=== PATIENT | female | born 1975 | race American Indian/Alaskan Native ===

== ENCOUNTER 2017-08-11 17:09 | Emergency (ER) | payer MEDICAID ==
[2017-08-11 17:19] VITALS: BP 120/57
[2017-08-11] MEDS ORDERED: ASPIRIN PO ONE (17:19)
--- NOTE | 2017-08-11 18:03 | Emergency Department Report ---
ED Chest Pain HPI - General Chief Complaint: Chest Pain Stated Complaint: CHEST PAIN Time Seen by Provider: 08/11/17 17:48 Source: patient Mode of arrival: Ambulatory Limitations: No Limitations - History of Present Illness Initial Comments: Ms. Gordon is a healthy 42-year-old female who presents with 2 weeks of intermittent chest pain. Chest pain is episodic. Not associated with exertion. Seems to be more prominent at night. Pain feels like a pinching sensation. The chest pain improved with massage. She has been under some stress. Denies leg pain. No recent travel. MD Complaint: chest pain -: Gradual, week(s) (2) Onset: during rest Pain Radiation: none Severity: moderate Severity scale (0 -10): 6 Quality: sharp Consistency: intermittent Improves With: other (massage) Worsens With: nothing Context: other (recently lost job 2 to 3 weeks ago) re: denies: nausea, vomting, diaphoresis, dyspnea, sense of impending doom Other Symptoms: denies: cough, fever, syncope, rash, leg swelling - Related Data Allergies Allergy/AdvReac Type Severity Reaction Status Date / Time No Known Allergies Allergy Unverified 08/11/17 17:16 Heart Score - HEART Score History: Slightly suspicious EKG: Normal Age: < 45 Risk factors: No known risk factors Troponin: < normal limit HEART Score: 0 ED Review of Systems ROS: Stated complaint: CHEST PAIN Other details as noted in HPI Comment: All other systems reviewed and negative Constitutional: denies: fever, malaise Respiratory: denies: cough Cardiovascular: as per HPI, chest pain, palpitations. denies: dyspnea on exertion, edema, syncope ED Past Medical Hx - Past Medical History Previous Medical History?: No - Surgical History Past Surgical History?: No - Family History Family history: no significant - Social History Smoking Status: Never Smoker Substance Use Type: Alcohol ED Physical Exam - General Limitations: No Limitations General appearance: alert, in no apparent distress - Head Head exam: Present: atraumatic, normocephalic - Eye Eye exam: Present: normal appearance - ENT ENT exam: Present: mucous membranes moist - Neck Neck exam: Present: normal inspection - Respiratory Respiratory exam: Present: normal lung sounds bilaterally. Absent: respiratory distress, wheezes, rales, rhonchi - Cardiovascular Cardiovascular Exam: Present: regular rate, normal rhythm, normal heart sounds. Absent: systolic murmur, diastolic murmur, rubs, gallop - GI/Abdominal GI/Abdominal exam: Present: soft, normal bowel sounds. Absent: distended, tenderness, guarding, rebound - Extremities Exam Extremities exam: Present: normal inspection - Back Exam Back exam: Present: normal inspection - Neurological Exam Neurological exam: Present: alert, oriented X3 - Psychiatric Psychiatric exam: Present: normal affect, normal mood - Skin Skin exam: Present: warm, dry, intact, normal color. Absent: rash ED Course Vital Signs 08/11/17 17:16 Temperature 99.4 F Pulse Rate 75 Respiratory 22 Rate Blood Pressure 120/57 O2 Sat by Pulse 100 Oximetry ED Medical Decision Making - Lab Data Result diagrams: 08/11/17 17:44 08/11/17 17:44 - EKG Data -: EKG Interpreted by Me EKG shows normal: sinus rhythm, axis, intervals, QRS complexes, ST-T waves Rate: normal - EKG Data 08/11/17 18:01 NSR nl rate nl axis nl intervals no ST-T signs of ischemia no ST elevation rate 65 beats a minute - Medical Decision Making Ms. Gordon presents with atypical chest pain at rest worse at night. I do not feel that her chest pain with presents ACS. No indication of PE. She has PERC negative. Possibly PVCs or chest wall strain. Given reassurance. She has recently obtained [employer] insurance. I recommended outpatient cardiac stress test. Referred to cardiology and outside clinic. Patient was concerned about possible potential diabetes. Random glucose of 91 do not suspect diabetes. However she does have irtn deficiency anemia. Critical care attestation.: If time is entered above; I have spent that time in minutes in the direct care of this critically ill patient, excluding procedure time. ED Disposition Clinical Impression: Chest pain, Anemia Disposition: -01 TO HOME OR SELFCARE Is pt being admited?: No Does the pt Need Aspirin: No Condition: Stable Instructions: Chest Pain (ED) Referrals: JANIA MCDONNELL MD [Staff Physician] - 3-5 Days [facility] [Outside] - 3-5 Days Time of Disposition: 18:04
[2017-08-11 18:13] LABS: BUN/Creatinine Ratio 13; Blood Urea Nitrogen 8 mg/dL (7-17); Calcium 8.9 mg/dL (8.4-10.2); Hemolysis Index 0
[2017-08-11 18:19] LABS: Basophils # (Auto) 0.1 K/mm3 (0.0-0.1); Eosinophils # (Auto) 0.1 K/mm3 (0.0-0.4); Eosinophils % (Auto) 1.2 % (0.0-4.3); Hematocrit 29.8 % (30.3-42.9); Hemoglobin 9.8 gm/dl (10.1-14.3); Lymphocytes # (Auto) 3.8 K/mm3 (1.2-5.4); Lymphocytes % (Auto) 45.3 % (13.4-35.0); Mean Corpuscular HGB Conc 33 % (30-34); Mean Corpuscular Hemoglobin 23 pg (28-32); Mean Corpuscular Volume 69 fl (79-97); Monocytes # (Auto) 0.9 K/mm3 (0.0-0.8); Monocytes % (Auto) 10.5 % (0.0-7.3); Platelet Count 305 K/mm3 (140-440); Red Cell Distribution Width 18.4 % (13.2-15.2)
== END 2017-08-11 18:32 | disposition home or self-care (01) ==
LOC: ED 17:09
DX: R07.9 Chest pain, unspecified (principal); D64.9 Anemia, unspecified
CPT/HCPCS: 36415; 80048; 84484; 85025; 93005; 93010

== ENCOUNTER 2019-12-04 14:41 | Emergency (ER) | payer SELFPAY ==
[2019-12-04] MEDS ORDERED: SODIUM CHLORIDE 0.9% 1000 ML 1,000 ML IV ONE (17:49)
[2019-12-04] MEDS ORDERED: ONDANSETRON 4 MG/2 ML INJ IV ONE (17:49)
[2019-12-04] MEDS ORDERED: KETOROLAC 30 MG/1 ML INJ IV ONE (17:49)
[2019-12-04] MEDS ORDERED: HYOSCYAMINE SUBL 0.125 MG TAB SL ONE (17:50)
[2019-12-04 18:49] LABS: Basophils # (Auto) 0.1 K/mm3 (0.0-0.1); Basophils % (Auto) 0.4 % (0.0-1.8); Eosinophils # (Auto) 0.1 K/mm3 (0.0-0.4); Eosinophils % (Auto) 0.5 % (0.0-4.3); Hematocrit 27.7 % (30.3-42.9); Hemoglobin 8.4 gm/dl (10.1-14.3); Lymphocytes # (Auto) 2.8 K/mm3 (1.2-5.4); Lymphocytes % (Auto) 16.3 % (13.4-35.0); Mean Corpuscular HGB Conc 31 % (30-34); Monocytes # (Auto) 1.5 K/mm3 (0.0-0.8); Monocytes % (Auto) 8.4 % (0.0-7.3); Platelet Count 443 K/mm3 (140-440); Red Blood Count 4.31 M/mm3 (3.65-5.03); Red Cell Distribution Width 19.7 % (13.2-15.2)
[2019-12-04 18:51] LABS: Mean Corpuscular Volume 64 fl (79-97)
[2019-12-04 18:52] LABS: Albumin 4.1 g/dL (3.9-5); Bilirubin,Direct 0.2 mg/dL (0-0.2)
--- NOTE | 2019-12-04 19:20 | Emergency Department Report ---
<CLAUDIAERA - Last Filed: 12/04/19 19:14> ED Abdominal Pain HPI - General Chief Complaint: Abdominal Pain Stated Complaint: ABDOMINAL PAIN Time Seen by Provider: 12/04/19 17:49 Source: patient Mode of arrival: Ambulatory Limitations: No Limitations - History of Present Illness Initial Comments: 44-year-old obese female sent emerge department complaining of a 2-month history of episodic abdominal pain associate with spasms and cramps which has progressively worsened over the last 3days to the point of a sharp throbbing cramping spastic pain. She reports no nausea, no vomiting, no diarrhea, no fever, chills, sweats no hemoptysis no hematemesis no hematochezia. She reports no hematuria or dysuria no increased urinary urgency or decreased decreased urinary production. No prior abdominal Severity: moderate, severe Severity scale (0 -10): 10 Improves With: nothing Worsens With: eating Associated Symptoms: denies: chills, anorexia - Related Data Previous Rx's Medication Instructions Recorded Last Taken Type Ciprofloxacin HCl [Ciprofloxacin 500 mg PO Q12HR #20 tab 12/05/19 Unknown Rx TAB] Dicyclomine [Bentyl] 20 mg PO Q6H PRN #30 tablet 12/05/19 Unknown Rx Ketorolac [Toradol] 10 mg PO Q6H PRN #20 tablet 12/05/19 Unknown Rx Ondansetron [Zofran Odt] 4 mg PO Q6HR PRN #20 tab.rapdis 12/05/19 Unknown Rx metroNIDAZOLE [Flagyl] 500 mg PO Q8HR #30 tablet 12/05/19 Unknown Rx Allergies Allergy/AdvReac Type Severity Reaction Status Date / Time No Known Allergies Allergy Unverified 08/11/17 17:16 ED Review of Systems Comment: All other systems reviewed and negative ED Past Medical Hx - Past Medical History Previous Medical History?: No - Surgical History Past Surgical History?: No - Social History Smoking Status: Never Smoker Substance Use Type: Alcohol - Medications Home Medications: Home Medications Medication Instructions Recorded Confirmed Last Taken Type Ciprofloxacin HCl [Ciprofloxacin 500 mg PO Q12HR #20 tab 12/05/19 Unknown Rx TAB] Dicyclomine [Bentyl] 20 mg PO Q6H PRN #30 tablet 12/05/19 Unknown Rx Ketorolac [Toradol] 10 mg PO Q6H PRN #20 tablet 12/05/19 Unknown Rx Ondansetron [Zofran Odt] 4 mg PO Q6HR PRN #20 tab.rapdis 12/05/19 Unknown Rx metroNIDAZOLE [Flagyl] 500 mg PO Q8HR #30 tablet 12/05/19 Unknown Rx ED Physical Exam - General Limitations: No Limitations General appearance: alert, in no apparent distress - Head Head exam: Present: atraumatic, normocephalic - Eye Eye exam: Present: normal appearance, PERRL, EOMI Pupils: Present: normal accommodation - ENT ENT exam: Present: normal exam, normal orophraynx, mucous membranes moist, TM's normal bilaterally - Neck Neck exam: Present: normal inspection, full ROM - Respiratory Respiratory exam: Present: normal lung sounds bilaterally. Absent: respiratory distress - Cardiovascular Cardiovascular Exam: Present: regular rate, normal rhythm. Absent: systolic mu rmur, diastolic murmur, rubs, gallop - GI/Abdominal GI/Abdominal exam: Present: soft, tenderness, normal bowel sounds, other (This is tenderness to the epigastric area and suprapubic region radiating to the left and right lower quadrant region. Abdomen is soft bowel sounds are positive). Absent: mass, bruit - Extremities Exam Extremities exam: Present: normal inspection - Back Exam Back exam: Present: normal inspection. Absent: CVA tenderness (R), CVA tenderness (L) - Neurological Exam Neurological exam: Present: alert, oriented X3, CN II-XII intact, normal gait - Psychiatric Psychiatric exam: Present: normal affect, normal mood - Skin Skin exam: Present: warm, dry, intact, normal color. Absent: rash ED Medical Decision Making - Lab Data Result diagrams: 12/04/19 18:19 - Medical Decision Making Currently pending his urinalysis and a CT scan for Ms. Linares. Will sign patient out to Zachery Michaud for today for definitive disposition ED Disposition Clinical Impression: Diverticulitis large intestine w/o perforation or abscess w/o bleeding Abdominal pain Qualifiers: Abdominal location: lower abdomen, unspecified Qualified Code(s): R10.30 - Lower abdominal pain, unspecified Disposition: TO HOME OR SELFCARE Condition: Stable Instructions: Abdominal Pain (ED), Diverticulitis (ED), Diverticulitis Diet (ED) Additional Instructions: The imaging report showed that you have infection in your colon called diverticulitis. Therefore take medication with food, drink plenty of fluids and follow-up with your primary care physician in 7 to 10 days for reevaluation. Return to the ED immediately if symptoms get worse. Prescriptions: Dicyclomine [Bentyl] 20 mg PO Q6H PRN #30 tablet PRN Reason: Abdominal pain Ciprofloxacin HCl [Ciprofloxacin TAB] 500 mg PO Q12HR #20 tab metroNIDAZOLE [Flagyl] 500 mg PO Q8HR #30 tablet Ketorolac [Toradol] 10 mg PO Q6H PRN #20 tablet PRN Reason: Pain Ondansetron [Zofran Odt] 4 mg PO Q6HR PRN #20 tab.rapdis PRN Reason: Nausea Referrals: ABHI COOL MD [Staff Physician] - 7-10 days Forms: Work/School Release Form(ED) Print Language: PORTUGUESE <ZACHERY MICHAUD - Last Filed: 12/05/19 00:33> ED Review of Systems ROS: Stated complaint: ABDOMINAL PAIN Other details as noted in HPI ED Course Vital Signs 12/04/19 12/04/19 14:56 18:24 Temperature 99.4 F Pulse Rate 109 H Respiratory 18 18 Rate Blood Pressure 130/74 O2 Sat by Pulse 100 Oximetry ED Medical Decision Making - Lab Data Result diagrams: 12/04/19 18:19 12/04/19 18:19 - Radiology Data Radiology results: report reviewed, image reviewed Findings [address] [address] Cat Scan Report Signed Patient: JOANNA LINARES MR#: [id number] : 1975 Acct:[id number] Age/Sex: 44 / F ADM Date: 12/04/19 Loc: ED Attending Dr: Ordering Physician: RUTHY ZAMORA Date of Service: 12/04/19 Procedure(s): CT abdomen pelvis w con Accession Number(s): [id number] cc: RUTHY ZAMORA CT ABDOMEN AND PELVIS WITH CONTRAST HISTORY: Abdominal pain, leukocytosis COMPARISON: None TECHNIQUE: Routine abdominal and pelvic CT exam performed following intravenous contrast administration. Patient received 100 mL IV Omnipaque 300. All CT scans at this location are pe rformed using CT dose reduction for ALARA by means of automated exposure control. FINDINGS: CT ABDOMEN: Lung Bases: No significant abnormality. Liver: No significant abnormality. Biliary: No significant abnormality. Spleen: No significant abnormality. Unenlarged. Pancreas: No significant abnormality. Adrenals: No significant abnormality. Kidneys: No significant abnormality. Lymphatics: No lymphadenopathy. Vasculature: No significant abnormality. Bowel/Peritoneum: There is diverticulitis in the junction of the descending and sigmoid colon, without abscess or perforation. Normal appendix. CT PELVIC: : No significant abnormality. Lymphatics: No lymphadenopathy. Osseous Structures: No aggressive appearing osseous lesions. Additional Findings: None IMPRESSION: 1. Diverticulitis at the junction of the descending and sigmoid colon, without abscess or perforation. Signer Name: Stu Xiong MD Signed: 12/05/2019 12:02 AM Workstation Name: [id number] Transcribed By: AMY Dictated By: Stu Xiong MD Electronically Authenticated By: Stu Xiong MD Signed Date/Time: 12/05/19 0002 DD/ 0001 TD/TT: - Medical Decision Making I assumed care of the patient from Romi Boone PA-C at shift change at 1900 hrs. Patient had presented to the ED with diffuse abdominal pain intermittently for the last 2 months, worse in the last 3 days with no nausea, vomiting, diarrhea, dysuria, urinary frequency and urgency, dizziness, fever and chills, chest pain, shortness of breath or vaginal bleeding. In the ED, patient was treated for pain and lab test results showed acute leukocytosis of 17,500, and the rest of the lab test results are nonactionable. At the time of shift change, the patient was awaiting abdomen pelvis CT scan with contrast test to be performed. The abdomen pelvis CT scan with contrast showed diverticulitis at the junction of the descending and sigmoid colon, without abscess or perforation. Patient was therefore treated for pain, also started on Levaquin 500 mg p.o. x1, and Flagyl 500 mg IV x1. On reevaluation, patient's pain is well controlled medications. Patient was discharged home on pain medications and antibiotics as well as antiemetics and was advised to follow-up with her primary care physician in 7 to 10 days for reevaluation or return to the ED immediately if symptoms get worse. - Differential Diagnosis Acute Critical care attestation.: If time is entered above; I have spent that time in minutes in the direct care of this critically ill patient, excluding procedure time. ED Disposition Is pt being admited?: No Does the pt Need Aspirin: No Time of Disposition: 00:32
[2019-12-04 20:03] LABS: HCG Qualitative,Urine Negative (Negative)
[2019-12-04 20:06] LABS: Bilirubin,Urine NEG (Negative); Blood,Urine NEG (Negative); Color,Urine Yellow (Yellow); Mucus,Urine 3+ /HPF; Protein,Urine <15 mg/dL mg/dL (Negative)
[2019-12-04 23:07] LABS: Alanine Aminotransferase 12 units/L (7-56); Albumin 4.3 g/dL (3.9-5); Blood Urea Nitrogen 6 mg/dL (7-17); Calcium 9.1 mg/dL (8.4-10.2); Hemolysis Index 4
[2019-12-04 23:19] LABS: BUN/Creatinine Ratio 9
--- NOTE | 2019-12-05 00:06 | Cat Scan Report ---
CT ABDOMEN AND PELVIS WITH CONTRAST HISTORY: Abdominal pain, leukocytosis COMPARISON: None TECHNIQUE: Routine abdominal and pelvic CT exam performed following intravenous contrast administrat ion. Patient received 100 mL IV Omnipaque 300. All CT scans at this location are performed using CT d ose reduction for ALARA by means of automated exposure control. FINDINGS: CT ABDOMEN: Lung Bases: No significant abnormality. Liver: No significant abnormality. Biliary: No significant abnormality. Spleen: No significant abnormality. Unenlarged. Pancreas: No significant abnormality. Adrenals: No significant abnormality. Kidneys: No significant abnormality. Lymphatics: No lymphadenopathy. Vasculature: No significant abnormality. Bowel/Peritoneum: There is diverticulitis in the junction of the descending and sigmoid colon, withou t abscess or perforation. Normal appendix. CT PELVIC: : No significant abnormality. Lymphatics: No lymphadenopathy. Osseous Structures: No aggressive appearing osseous lesions. Additional Findings: None IMPRESSION: 1. Diverticulitis at the junction of the descending and sigmoid colon, without abscess or perforation . Signer Name: Stu Xiong MD Signed: 12/05/2019 12:02 AM Workstation Name: [id number]
[2019-12-05] MEDS ORDERED: levoFLOXacin 500 MG TAB PO ONE (00:08)
[2019-12-05] MEDS ORDERED: metroNIDAZOLE/NS 500 MG/100 ML 500 MG/100 ML BAG IV ONE (00:10)
[2019-12-05] MEDS ORDERED: MORPHINE 4 MG/1 ML INJ IV ONE (00:17)
[2019-12-05] MEDS ORDERED: ONDANSETRON 4 MG/2 ML INJ IV ONE (00:17)
[2019-12-05 01:22] VITALS: BP 113/62
== END 2019-12-05 01:00 | disposition home or self-care (01) ==
LOC: ED 14:41
DX: K57.32 Diverticulitis of large intestine without perforation or abscess without bleeding (principal); Z79.899 Other long term (current) drug therapy
CPT/HCPCS: 36415; 74177; 80053; 80076; 81001; 81025; 83690; 85025; 96361; 96365; 96375; 96376; 99284; J1885; J2270; J2405; J7030; Q9967

== ENCOUNTER 2020-04-17 12:35 | Emergency (ER) | payer SELFPAY ==
[2020-04-17] MEDS ORDERED: METOCLOPRAMIDE 10 MG/2 ML INJ IV ONE (13:12)
[2020-04-17] MEDS ORDERED: dexAMETHasone 4 MG/ML VIAL IV ONE (13:12)
[2020-04-17] MEDS ORDERED: KETOROLAC 30 MG/1 ML INJ IV ONE (13:12)
--- NOTE | 2020-04-17 13:13 | Emergency Department Report ---
ED Headache HPI - General Chief Complaint: Headache Stated Complaint: HEADACHE Source: patient - History of Present Illness Initial Comments: 45 y/o female comes in for intermittent headache for 1 week. Took Ibuprofen 800mg 2 days ago. Reports that it is global and had left eye twitching. Last eye check was 1 year ago for reading but has not been wearing. She denies any head trauma. No PMH NO meds and NKDA. Quality: moderate, throbbing Head Injury Location: global Recent Head Trauma: no recent headache/trauma Associated Symptoms: nausea/vomiting (no vomiting). denies: fatigue, facial pain, fever/chills, nasal congestion, nasal drainage, stiff neck, vision changes Allergies/Adverse Reactions: Allergies No Known Allergies Allergy (Unverified 08/11/17 17:16) Home Medications: Ambulatory Orders Ciprofloxacin HCl [Ciprofloxacin TAB] 500 mg PO Q12HR #20 tab 12/05/19 Dicyclomine [Bentyl] 20 mg PO Q6H PRN #30 tablet 12/05/19 Ketorolac [Toradol] 10 mg PO Q6H PRN #20 tablet 12/05/19 Ondansetron [Zofran Odt] 4 mg PO Q6HR PRN #20 tab.rapdis 12/05/19 metroNIDAZOLE [Flagyl] 500 mg PO Q8HR #30 tablet 12/05/19 ED Review of Systems ROS: Stated complaint: HEADACHE Other details as noted in HPI Comment: All other systems reviewed and negative ED Past Medical Hx - Past Medical History Previous Medical History?: No - Surgical History Past Surgical History?: No - Social History Smoking Status: Never Smoker Substance Use Type: Alcohol - Medications Home Medications: Home Medications Medication Instructions Recorded Confirmed Last Taken Type Ciprofloxacin HCl [Ciprofloxacin 500 mg PO Q12HR #20 tab 12/05/19 Unknown Rx TAB] Dicyclomine [Bentyl] 20 mg PO Q6H PRN #30 tablet 12/05/19 Unknown Rx Ketorolac [Toradol] 10 mg PO Q6H PRN #20 tablet 12/05/19 Unknown Rx Ondansetron [Zofran Odt] 4 mg PO Q6HR PRN #20 tab.rapdis 12/05/19 Unknown Rx metroNIDAZOLE [Flagyl] 500 mg PO Q8HR #30 tablet 12/05/19 Unknown Rx ED Physical Exam - General Limitations: No Limitations General appearance: alert, in no apparent distress - Head Head exam: Present: atraumatic, normocephalic - Eye Eye exam: Present: normal appearance - ENT ENT exam: Present: normal exam, mucous membranes moist - Neck Neck exam: Present: normal inspection, full ROM - Respiratory Respiratory exam: Present: normal lung sounds bilaterally - Cardiovascular Cardiovascular Exam: Present: regular rate, normal rhythm. Absent: systolic murmur, diastolic murmur, rubs, gallop - Expanded Neurological Exam Expanded Cranial nerves: EOM's Intact: Normal, Gag Reflex: Normal, Tongue Deviation: Normal, Nystagmus: Normal, Facial Sensation: Normal, Facial Palsy with Forehead Movement: Normal, Facial Palsy without Forehead Movement: Normal Cerebellar function: Finger to Nose: Normal, Heel to [place]: Normal, Romberg: Normal Upper motor neuron: Giorgi Neglect: Normal, Pronator Drift: Normal, Babinski Sign: Normal, Sensory Extinction: Normal Sensory exam: Upper Extremity Light Touch: Normal, Upper Extremity Pin Prick: Normal, Upper Extremity Temperature: Normal, UE 2 Point Discrimination: Normal, Lower Extremity Light Touch: Normal, Lower Extremity Pin Prick: Normal, Lower Extremity Temperature: Normal, LE 2 Point Discrimination: Normal Motor strength exam: RUE: 5, LUE: 5, RLE: 5, LLE: 5 Best Eye Response ([place]): (4) open spontaneously Best Motor Response (Jr): (6) obeys commands Best Verbal Response ([place]): (5) oriented Jr Total: 15 - Psychiatric Psychiatric exam: Present: normal affect, normal mood - Skin Skin exam: Present: warm, dry, intact, normal color. Absent: rash ED Course Vital Signs 04/17/20 12:42 Temperature 98.1 F Pulse Rate 74 Respiratory 18 Rate Blood Pressure 119/68 O2 Sat by Pulse 60 L Oximetry ED Medical Decision Making - Medical Decision Making 45 y/o female comes in for intermittent headache for 1 week. Took Ibuprofen 800mg 2 days ago. Reports that it is global and had left eye twitching. Last eye check was 1 year ago for reading but has not been wearing. She denies any head trauma. No PMH NO meds and NKDA. Critical care attestation.: If time is entered above; I have spent that time in minutes in the direct care of this critically ill patient, excluding procedure time. ED Disposition Clinical Impression: Headache Qualifiers: Headache type: unspecified Headache chronicity pattern: acute headache Intractability: intractable Qualified Code(s): R51.9 - Headache, unspecified Disposition: DC-01 TO HOME OR SELFCARE Is pt being admited?: No Does the pt Need Aspirin: No Condition: Stable Instructions: General Headache Without Cause, [id number] Additional Instructions: Try to take Tylenol and or Naproxen. Follow up with a Primary Healthcare Provider. Referrals: ABHI COOL MD [Staff Physician] - 3-5 Days [facility] [Provider Group] - 3-5 Days Forms: Work/School Release Form(ED)
[2020-04-17 14:11] VITALS: BP 119/57
== END 2020-04-17 14:17 | disposition home or self-care (01) ==
LOC: ED 12:35
DX: R51.9 Headache, unspecified (principal); Z79.899 Other long term (current) drug therapy
CPT/HCPCS: 96374; 96375; 99282; J1100; J1885; J2765

== ENCOUNTER 2020-08-05 18:22 | Emergency (ER) | payer SELFPAY ==
[2020-08-05 20:31] VITALS: BP 115/79
[2020-08-05 20:38] LABS: Hematocrit 35.4 % (30.3-42.9); Hemoglobin 11.7 gm/dl (10.1-14.3); Mean Corpuscular HGB Conc 33 % (30-34); Mean Corpuscular Volume 80 fl (79-97); Platelet Count 244 K/mm3 (140-440); Red Blood Count 4.43 M/mm3 (3.65-5.03)
[2020-08-05 20:39] LABS: Bilirubin,Urine NEG (Negative); Blood,Urine NEG (Negative); Color,Urine Yellow (Yellow); Mucus,Urine FEW /HPF; Protein,Urine <15 mg/dL mg/dL (Negative); Urobilinogen,Urine < 2.0 mg/dL (<2.0)
[2020-08-05 20:45] LABS: Red Cell Distribution Width 26.8 % (13.2-15.2)
[2020-08-05 20:54] LABS: Alanine Aminotransferase 12 units/L (7-56); Albumin 3.9 g/dL (3.9-5); BUN/Creatinine Ratio 11; Blood Urea Nitrogen 8 mg/dL (7-17); Calcium 8.4 mg/dL (8.4-10.2); Hemolysis Index 7
[2020-08-05] MEDS ORDERED: SODIUM CHLORIDE 0.9% 1000 ML 1,000 ML IV ONE (21:39)
[2020-08-05] MEDS ORDERED: MORPHINE 4 MG/1 ML INJ IV ONE (21:39)
[2020-08-05] MEDS ORDERED: ONDANSETRON 4 MG/2 ML INJ IV ONE (21:40)
--- NOTE | 2020-08-05 21:40 | Emergency Department Report ---
ED Abdominal Pain HPI - General Chief Complaint: Abdominal Pain Stated Complaint: ABDOMINAL/HEADACHE Time Seen by Provider: 08/05/20 20:46 Source: patient Mode of arrival: Ambulatory Limitations: No Limitations - History of Present Illness Initial Comments: 45-year-old female presents to the ER today with complaints of abdominal pain. Patient states that she has been having left-sided abdominal pain for about a week. She states is been constant. She also reports associated constipation, abdominal bloating, headache and urinary frequency. She states that she did have some prune juice this past Sunday after which she did have a good bowel movement but has not produced any since. She denies any blood or mucus in her stool. She denies any nausea or vomiting. She reports urinary frequency but no other UTI symptoms. Her last menstrual cycle was last week. She denies any abnormal vaginal symptoms. She reports a history of diverticulitis back in December 2019 and was concerned that her symptoms could be related to the same thing. She was not admitted or had to have any surgery and states she got better after being discharged home with antibiotics. She denies any abdominal surgeries in the past. She states she has never had a colonoscopy. MD Complaint: abdominal pain -: week(s) (1) - Related Data Previous Rx's Medication Instructions Recorded Last Taken Type Amoxicillin/K Clav Tab [Augmentin 1 tab PO Q8HR #30 tab 08/06/20 Unknown Rx 875 mg] Docusate Sodium [Colace] 100 mg PO BID #60 capsule 08/06/20 Unknown Rx Ondansetron [Zofran ODT TAB] 4 mg PO Q6HR PRN #20 tab.rapdis 08/06/20 Unknown Rx Allergies Allergy/AdvReac Type Severity Reaction Status Date / Time No Known Allergies Allergy Unverified 08/11/17 17:16 ED Review of Systems ROS: Stated complaint: ABDOMINAL/HEADACHE Other details as noted in HPI Comment: All other systems reviewed and negative Constitutional: chills. denies: fever Eyes: denies: eye pain, eye discharge, vision change ENT: denies: ear pain, throat pain, dental pain, hearing loss Respiratory: denies: cough, shortness of breath, SOB with exertion, SOB at rest, wheezing Cardiovascular: denies: chest pain, palpitations, dyspnea on exertion, edema, syncope, paroxysmal nocturnal dyspnea Gastrointestinal: abdominal pain, constipation. denies: nausea, vomiting, diarrhea, hematemesis, melena, hematochezia Genitourinary: frequency. denies: urgency, dysuria, hematuria, discharge, abnormal menses, dyspareunia Musculoskeletal: denies: back pain, joint swelling, arthralgia Skin: denies: rash, lesions, change in color, change in hair/nails, pruritus Neurological: denies: headache, weakness, numbness, paresthesias, confusion, abnormal gait, vertigo Psychiatric: denies: anxiety, depression, auditory hallucinations, visual hallucinations, homicidal thoughts, suicidal thoughts Hematological/Lymphatic: denies: easy bleeding, easy bruising ED Past Medical Hx - Past Medical History Previous Medical History?: No - Surgical History Past Surgical History?: No - Social History Smoking Status: Never Smoker Substance Use Type: None - Medications Home Medications: Home Medications Medication Instructions Recorded Confirmed Last Taken Type Amoxicillin/K Clav Tab [Augmentin 1 tab PO Q8HR #30 tab 08/06/20 Unknown Rx 875 mg] Docusate Sodium [Colace] 100 mg PO BID #60 capsule 08/06/20 Unknown Rx Ondansetron [Zofran ODT TAB] 4 mg PO Q6HR PRN #20 tab.rapdis 08/06/20 Unknown Rx ED Physical Exam - General Limitations: No Limitations General appearance: alert, in no apparent distress - Head Head exam: Present: atraumatic, normocephalic, normal inspection - Eye Eye exam: Present: normal appearance, PERRL, EOMI Pupils: Present: normal accommodation - ENT ENT exam: Present: normal exam, mucous membranes moist - Neck Neck exam: Present: normal inspection, full ROM - Respiratory Respiratory exam: Present: normal lung sounds bilaterally. Absent: respiratory distress, rales, rhonchi - Cardiovascular Cardiovascular Exam: Present: regular rate, normal rhythm, normal heart sounds - GI/Abdominal GI/Abdominal exam: Present: soft, tenderness (Mild ttp LLQ and LLQ without guarding; Mod ttp Suprapubic area with mild guard but no rebound. No rigidity noted. ). Absent: distended - Neurological Exam Neurological exam: Present: alert, oriented X3, CN II-XII intact, normal gait - Psychiatric Psychiatric exam: Present: normal affect, normal mood - Skin Skin exam: Present: intact ED Course Vital Signs 08/05/20 20:01 Temperature 99.0 F Pulse Rate 67 Respiratory 18 Rate Blood Pressure 115/79 O2 Sat by Pulse 100 Oximetry ED Medical Decision Making - Lab Data Result diagrams: 08/05/20 20:21 08/05/20 20:21 - Radiology Data Radiology results: report reviewed Patient: JOANNA LINARES MR#: [id number] : 1975 Acct:[id number] Age/Sex: 45 / F ADM Date: 08/05/20 Loc: ED Attending Dr: Ordering Physician: ANGELIQUE PALAFOX Date of Service: 08/05/20 Procedure(s): CT abdomen pelvis w con Accession Number(s): [id number] cc: ANGELIQUE PALAFOX CT ABDOMEN AND PELVIS WITH CONTRAST INDICATION / CLINICAL INFORMATION: Left sided abd pain / Constipation / Hx of Diverticulitis. TECHNIQUE: Axial CT images were obtained through the abdomen and pelvis after 100 cc Omnipaque 300 milligrams percent IV contrast. All CT scans at this location are performed using CT dose reduction for ALARA by means of automated exposure control. COMPARISON: None available. FINDINGS: LOWER CHEST: No significant abnormality. LIVER: No significant abnormality. GALLBLADDER: No significant abnormality. BILE DUCTS: No significant abnormality. PANCREAS: No significant abnormality. SPLEEN: No significant abnormality. ADRENALS: No significant abnormality. RIGHT KIDNEY and URETER: No significant abnormality. LEFT KIDNEY and URETER: No significant abnormality. STOMACH and SMALL BOWEL: No significant abnormality. COLON: Diverticulosis sigmoid colon without evidence of diverticulitis APPENDIX: No significant abnormality. PERITONEUM: No free fluid. No free air. No fluid collection. LYMPH NODES: No significant adenopathy. AORTA and ARTERIES: No significant abnormality. IVC and VEINS: No significant abnormality. URINARY BLADDER: No significant abnormality. REPRODUCTIVE ORGANS: No significant abnormality. ADDITIONAL FINDINGS: None. SKELETAL SYSTEM: No significant abnormality. IMPRESSION: 1. Diverticulosis of the sigmoid colon Signer Name: Mata Orozco MD Signed: 08/06/2020 12:35 AM Workstation Name: [id number] Transcribed By: PARMINDER Dictated By: Mata Orozco MD Electronically Authenticated By: Mata Orozco MD Signed Date/Time: 08/06/20 0035 - Medical Decision Making Labs reviewed -- CBC and CMP unremarkable. UA unremarkable. CT abd/pelvis with IV contrast shows sigmoid diverticulosis without diverticulitis and no other acute abnormality. Patient currently resting comfortably. She reports improvement of her pain after meds. She is not toxic or ill-appearing. Repeat abdominal exam shows mild tenderness in the left lower and suprapubic area but no rebound or guarding or rigidity or distention. Discussed case with Dr. Stevens, and he agrees that given patient history of diverticulitis, and location of her pain, recommend starting patient on Augmentin 3 times a day despite negative evidence CT for diverticulitis. Discussed lab and CT results with patient. Informed patient that we will still start on Augmentin to take 3 times a day, and and she will also be prescribed Colace to help soften her stools and have daily regular bowel movements. Also recommend she increase her water and fiber intake and she takes a probiotic. Discussed with patient importance of follow-up with GI for outpatient colonoscopy. Discussed with patient that if her abdominal pain worsens and she develops fever to return immediately to the ER. Patient expresses understanding of instructions and agree with plan. Patient stable at time of discharge. Critical care attestation.: If time is entered above; I have spent that time in minutes in the direct care of this critically ill patient, excluding procedure time. ED Disposition Clinical Impression: Left sided abdominal pain, Diverticulosis Disposition: DC-01 TO HOME OR SELFCARE Is pt being admited?: No Does the pt Need Aspirin: No Condition: Stable Instructions: Abdominal Pain, Adult, [id number], Diverticulosis, Abdominal Pain (ED) Additional Instructions: Take the Augmentin as prescribed. Take the Motrin as prescribed to help with pain, and take the Zofran as needed for nausea or vomiting. Take the Colace as prescribed to help soften your stool. Also recommend taking a probiotic daily. Also recommend that you increase your water and fiber intake to help with you having regular daily bowel movements. Follow-up closely with your primary care doctor. Return to the ER immediately if your pain worsens in any way and you start having associated fever with a temperature of 100.5 or higher. 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
[2020-08-05 22:08] LABS: Anisocytosis 2+; Total Cells Counted 100
[2020-08-05 22:09] LABS: Dimorphic RBC Yes; Macrocytosis Rare; Schistocytes Few
--- NOTE | 2020-08-06 00:40 | Cat Scan Report ---
CT ABDOMEN AND PELVIS WITH CONTRAST INDICATION / CLINICAL INFORMATION: Left sided abd pain / Constipation / Hx of Diverticulitis. TECHNIQUE: Axial CT images were obtained through the abdomen and pelvis after 100 cc Omnipaque 300 milligrams pe rcent IV contrast. All CT scans at this location are performed using CT dose reduction for ALARA by means of automated exposure control. COMPARISON: None available. FINDINGS: LOWER CHEST: No significant abnormality. LIVER: No significant abnormality. GALLBLADDER: No significant abnormality. BILE DUCTS: No significant abnormality. PANCREAS: No significant abnormality. SPLEEN: No significant abnormality. ADRENALS: No significant abnormality. RIGHT KIDNEY and URETER: No significant abnormality. LEFT KIDNEY and URETER: No significant abnormality. STOMACH and SMALL BOWEL: No significant abnormality. COLON: Diverticulosis sigmoid colon without evidence of diverticulitis APPENDIX: No significant abnormality. PERITONEUM: No free fluid. No free air. No fluid collection. LYMPH NODES: No significant adenopathy. AORTA and ARTERIES: No significant abnormality. IVC and VEINS: No significant abnormality. URINARY BLADDER: No significant abnormality. REPRODUCTIVE ORGANS: No significant abnormality. ADDITIONAL FINDINGS: None. SKELETAL SYSTEM: No significant abnormality. IMPRESSION: 1. Diverticulosis of the sigmoid colon Signer Name: Mata Orozco MD Signed: 08/06/2020 12:35 AM Workstation Name: [id number]
[2020-08-06] MEDS ORDERED: KETOROLAC 30 MG/1 ML INJ IV ONE (01:02)
[2020-08-06] MEDS ORDERED: AMOXICILLIN/K CLAV 875/125MG TAB PO ONE (01:02)
== END 2020-08-06 01:15 | disposition home or self-care (01) ==
LOC: ED 18:22
DX: K57.90 Diverticulosis of intestine, part unspecified, without perforation or abscess without bleeding (principal); R51.9 Headache, unspecified; R35.0 Frequency of micturition
CPT/HCPCS: 36415; 74177; 80053; 81001; 84703; 85007; 85025; 96361; 96374; 96375; 99284; J1885; J2270; J2405; J7030; Q9967

== ENCOUNTER 2020-08-24 16:20 | Emergency (ER) | payer SELFPAY ==
[2020-08-24 17:39] LABS: Bilirubin,Urine NEG (Negative); Blood,Urine NEG (Negative); Color,Urine Yellow (Yellow); Hyaline Casts,Urine 1 /LPF; Mucus,Urine 1+ /HPF; Protein,Urine <15 mg/dL mg/dL (Negative); Urobilinogen,Urine < 2.0 mg/dL (<2.0)
[2020-08-24 20:16] LABS: Hematocrit 35.8 % (30.3-42.9); Hemoglobin 11.9 gm/dl (10.1-14.3); Mean Corpuscular HGB Conc 33 % (30-34); Mean Corpuscular Volume 83 fl (79-97); Platelet Count 265 K/mm3 (140-440); Red Blood Count 4.34 M/mm3 (3.65-5.03)
[2020-08-24 20:17] LABS: Red Cell Distribution Width 21.4 % (13.2-15.2)
--- NOTE | 2020-08-24 20:17 | Ultrasound Report ---
. ULTRASOUND ABDOMEN, LIMITED (RIGHT UPPER QUADRANT) INDICATION: RUQ pain. COMPARISON: CT 08/05/2020 FINDINGS: Pancreas: Visualized portion shows no significant abnormality. Liver: Normal. Gallbladder: Normal. Bile ducts: Normal. Common Bile Duct measures 3-4 mm. Free fluid: None. Additional Findings: None. IMPRESSION: 1. No sonographic abnormality of the right upper quadrant. Signer Name: Vicente Garcia MD Signed: 08/24/2020 8:13 PM Workstation Name: [id number]
[2020-08-24 20:50] LABS: Alanine Aminotransferase 11 units/L (7-56); Albumin 3.9 g/dL (3.9-5); Blood Urea Nitrogen 8 mg/dL (7-17); Calcium 8.9 mg/dL (8.4-10.2); Hemolysis Index 11
[2020-08-24 20:58] LABS: BUN/Creatinine Ratio 13
[2020-08-24 21:21] LABS: Total Cells Counted 100
[2020-08-24 21:22] LABS: Anisocytosis 2+; Dimorphic RBC Yes; Macrocytosis Rare; Schistocytes Few
--- NOTE | 2020-08-24 22:35 | Emergency Department Report ---
<CLAUDIAERA - Last Filed: 08/24/20 22:31> ED Abdominal Pain HPI - General Chief Complaint: Abdominal Pain Stated Complaint: ABD PAIN, HEADACHE Source: patient Mode of arrival: Ambulatory Limitations: No Limitations - History of Present Illness Initial Comments: 45-year-old -Gabonese female returns emerged from complaining of a 2-week history epigastric and right upper quadrant pain and a crampy nature which worsens with certain meals and with palpation. Also has been having a dull throbbing headache off and on of an unknown etiology. MD Complaint: abdominal pain -: Gradual Location: epigastric Quality: aching, dull Consistency: intermittent Associated Symptoms: nausea. denies: dysuria, hematemesis, hematuria, anorexia, syncope - Related Data Previous Rx's Medication Instructions Recorded Last Taken Type Amoxicillin/K Clav Tab [Augmentin 1 tab PO Q8HR #30 tab 08/06/20 Unknown Rx 875 mg] Docusate Sodium [Colace] 100 mg PO BID #60 capsule 08/06/20 Unknown Rx Ibuprofen [Motrin] 800 mg PO Q8HR PRN #30 tablet 08/06/20 Unknown Rx Ondansetron [Zofran ODT TAB] 4 mg PO Q6HR PRN #20 tab.rapdis 08/06/20 Unknown Rx Butalbit/Acetamin/Caff/Codeine 1 cap PO Q8HR PRN #14 cap 08/24/20 Unknown Rx [Fioricet/Codeine 97-312-28-30] Hyoscyamine Subl [Levsin Sl 0.125 0.125 mg SL Q6HR PRN #20 tab 08/24/20 Unknown Rx TAB] Ondansetron [Zofran ODT TAB] 8 mg PO Q12HR #14 tab.rapdis 08/24/20 Unknown Rx Allergies Allergy/AdvReac Type Severity Reaction Status Date / Time No Known Allergies Allergy Unverified 08/11/17 17:16 ED Review of Systems Comment: All other systems reviewed and negative ED Past Medical Hx - Past Medical History Previous Medical History?: No - Surgical History Past Surgical History?: No - Social History Smoking Status: Never Smoker Substance Use Type: None - Medications Home Medications: Home Medications Medication Instructions Recorded Confirmed Last Taken Type Amoxicillin/K Clav Tab [Augmentin 1 tab PO Q8HR #30 tab 08/06/20 Unknown Rx 875 mg] Docusate Sodium [Colace] 100 mg PO BID #60 capsule 08/06/20 Unknown Rx Ibuprofen [Motrin] 800 mg PO Q8HR PRN #30 tablet 08/06/20 Unknown Rx Ondansetron [Zofran ODT TAB] 4 mg PO Q6HR PRN #20 tab.rapdis 08/06/20 Unknown Rx Butalbit/Acetamin/Caff/Codeine 1 cap PO Q8HR PRN #14 cap 08/24/20 Unknown Rx [Fioricet/Codeine 09-737-83-30] Hyoscyamine Subl [Levsin Sl 0.125 0.125 mg SL Q6HR PRN #20 tab 08/24/20 Unknown Rx TAB] Ondansetron [Zofran ODT TAB] 8 mg PO Q12HR #14 tab.rapdis 08/24/20 Unknown Rx ED Physical Exam - General Limitations: No Limitations General appearance: alert, in no apparent distress - Head Head exam: Present: atraumatic, normocephalic - Eye Eye exam: Present: normal appearance - ENT ENT exam: Present: mucous membranes moist - Neck Neck exam: Present: normal inspection - Respiratory Respiratory exam: Present: normal lung sounds bilaterally. Absent: respiratory distress - Cardiovascular Cardiovascular Exam: Present: regular rate, normal rhythm. Absent: systolic murmur, diastolic murmur, rubs, gallop - GI/Abdominal GI/Abdominal exam: Present: soft, tenderness (Tenderness to the right upper quadrant with positive Guerrier sign is noted.. No Rovsing, no Alvarez Gordon, no Nirav sign. No CVA tenderness is noted.), normal bowel sounds - Extremities Exam Extremities exam: Present: normal inspection - Back Exam Back exam: Present: normal inspection - Neurological Exam Neurological exam: Present: alert, oriented X3 - Psychiatric Psychiatric exam: Present: normal affect, normal mood - Skin Skin exam: Present: warm, dry, intact, normal color. Absent: rash ED Medical Decision Making - Lab Data Result diagrams: 08/24/20 19:36 08/24/20 19:36 - Radiology Data Radiology results: report reviewed Ultrasound normal - Medical Decision Making This patient presents with abdominal pain of unclear etiology. Their evaluation has not identified a emergent etiology for the abdominal pain. Specifically, given the very benign exam, normal laboratory studies, and lack of significant risk factors, I have a very low suspicion for appendicitis, ischemic bowel, bowel perforation, or any other life threatening disease. I have discussed with the patient the level of uncertainty with undifferentiated abdominal pain and clearly explained the need to follow-up as noted on the discharge instructions, or return to the Emergency Department immediately if the pain worsens, develops fever, persistent and uncontrollable vomiting, or for any new symptoms or concerns. I discussed with the patient that this presentation today for abdominal pain could represent a significant risk for an acute abdominal process. Although the tests in the ED were essentially normal, there is still a possibility of a process such as appendicitis, diverticulitis, cholecystitis, ulcer, early bowel obstruction, mesenteric ischemia, kidney stone, or even kidney infection which could subsequently cause disability or . The patient understands that they must return within 24 hours for a recheck or see their ph ysician within 24 hours for re-exam due to the possibility of significant surgical or medical process. ED Disposition Clinical Impression: Abdominal pain, Nausea, Cephalgia Disposition: TO HOME OR SELFCARE Is pt being admited?: No Does the pt Need Aspirin: No Condition: Stable Instructions: Migraine Headache, [id number], General Headache Without Cause, Tension Headache, Adult, [id number], Abdominal Pain, Adult, [id number], Abdominal Pain (ED) Additional Instructions: No evidence of of any gallbladder stones were noted. It is recommended based on your symptoms that you received a HIDA scan so please follow-up with gastroenterology for definitive management. Medication has been provided to you to help alleviate some of the symptoms you have been experiencing. Prescriptions: Butalbit/Acetamin/Caff/Codeine [Fioricet/Codeine [id number]] 1 cap PO Q8HR PRN #14 cap PRN Reason: headache Hyoscyamine Subl [Levsin Sl 0.125 TAB] 0.125 mg SL Q6HR PRN #20 tab PRN Reason: abdominal cramps and spasms Ondansetron [Zofran ODT TAB] 8 mg PO Q12HR #14 tab.rapdis Referrals: PRIMARY CAREMD [Primary Care Provider] - 3-5 Days [facility] [Provider Group] - 3-5 Days MARIA E SHAHID MD [Staff Physician] - 3-5 Days <PATRICE FISHER - Last Filed: 08/25/20 17:02> ED Review of Systems ROS: Stated complaint: ABD PAIN, HEADACHE Other details as noted in HPI ED Course Vital Signs 08/24/20 22:50 Pulse Rate 74 Respiratory 17 Rate O2 Sat by Pulse 100 Oximetry ED Medical Decision Making - Lab Data Result diagrams: 08/24/20 19:36 08/24/20 19:36 Critical care attestation.: If time is entered above; I have spent that time in minutes in the direct care of this critically ill patient, excluding procedure time. ED Disposition Is pt being admited?: No
== END 2020-08-24 22:50 | disposition home or self-care (01) ==
LOC: ED 16:20
DX: R10.13 Epigastric pain (principal); R10.11 Right upper quadrant pain; R51.9 Headache, unspecified; R11.0 Nausea; Z79.899 Other long term (current) drug therapy
CPT/HCPCS: 36415; 76705; 80053; 81001; 83690; 85007; 85025; 99284

== ENCOUNTER 2021-06-29 14:45 | Emergency (ER) | payer SELFPAY ==
[2021-06-29 16:01] LABS: Bilirubin,Urine NEG (Negative); Blood,Urine NEG (Negative); Color,Urine Yellow (Yellow); Mucus,Urine FEW /HPF; Protein,Urine <15 mg/dL mg/dL (Negative); RBC,Urine < 1.0 /HPF (0.0-6.0); Urobilinogen,Urine < 2.0 mg/dL (<2.0)
[2021-06-29 21:02] LABS: Basophils # (Auto) 0.1 K/mm3 (0.0-0.1); Basophils % (Auto) 0.8 % (0.0-1.8); Eosinophils # (Auto) 0.2 K/mm3 (0.0-0.4); Eosinophils % (Auto) 2.3 % (0.0-4.3); Lymphocytes % (Auto) 39.3 % (13.4-35.0); Mean Corpuscular HGB Conc 34 % (30-34); Mean Corpuscular Volume 88 fl (79-97); Monocytes # (Auto) 0.6 K/mm3 (0.0-0.8); Monocytes % (Auto) 8.5 % (0.0-7.3); Platelet Count 249 K/mm3 (140-440); Red Blood Count 4.32 M/mm3 (3.65-5.03); Red Cell Distribution Width 13.5 % (13.2-15.2)
[2021-06-29 21:15] LABS: Alanine Aminotransferase 16 units/L (7-56); Albumin 4.2 g/dL (3.9-5); Blood Urea Nitrogen 6 mg/dL (7-17); Calcium 9.4 mg/dL (8.4-10.2); Hemolysis Index 3
[2021-06-29 21:18] LABS: BUN/Creatinine Ratio 10; Bilirubin,Direct < 0.2 mg/dL (0-0.2)
[2021-06-29 22:22] VITALS: BP 117/56
--- NOTE | 2021-06-29 22:22 | Emergency Department Report ---
ED Abdominal Pain HPI - General Chief Complaint: Abdominal Pain Stated Complaint: STOMACH PAIN Time Seen by Provider: 06/29/21 19:48 Source: patient Mode of arrival: Ambulatory Limitations: No Limitations - History of Present Illness Initial Comments: 46-year-old -[place]er female with a past medical history of diverticulosis presents emerged department complaining of left upper quadrant pain off and on for the last 3 days of unknown etiology she reports no fever, chills, sweats. No nausea, vomiting, no diarrhea, no hemoptysis no hematemesis hematochezia. Pain is a crampy sensation and radiates around to her left flank off and on associated with increased urinary frequency. She reports no vaginal discharge, no loss of bowel bowel bladder. She reports no chest pain, palpitations. - Related Data Previous Rx's Medication Instructions Recorded Last Taken Type Amoxicillin/K Clav Tab [Augmentin 1 tab PO Q8HR #30 tab 08/06/20 Unknown Rx 875 mg] Docusate Sodium [Colace] 100 mg PO BID #60 capsule 08/06/20 Unknown Rx Ibuprofen [Motrin] 800 mg PO Q8HR PRN #30 tablet 08/06/20 Unknown Rx Ondansetron [Zofran ODT TAB] 4 mg PO Q6HR PRN #20 tab.rapdis 08/06/20 Unknown Rx Butalbit/Acetamin/Caff/Codeine 1 cap PO Q8HR PRN #14 cap 08/24/20 Unknown Rx [Fioricet/Codeine [id number]] Hyoscyamine Subl [Levsin Sl 0.125 0.125 mg SL Q6HR PRN #20 tab 08/24/20 Unknown Rx TAB] Ondansetron [Zofran ODT TAB] 8 mg PO Q12HR #14 tab.rapdis 08/24/20 Unknown Rx Hyoscyamine Subl [Levsin Sl 0.125 0.125 mg SL Q4HR PRN #20 tablet 06/29/21 Unknown Rx TAB] Allergies Allergy/AdvReac Type Severity Reaction Status Date / Time No Known Allergies Allergy Unverified 08/11/17 17:16 ED Review of Systems ROS: Stated complaint: STOMACH PAIN Other details as noted in HPI Comment: All other systems reviewed and negative ED Past Medical Hx - Social History Smoking Status: Never Smoker Substance Use Type: None - Medications Home Medications: Home Medications Medication Instructions Recorded Confirmed Last Taken Type Amoxicillin/K Clav Tab [Augmentin 1 tab PO Q8HR #30 tab 08/06/20 Unknown Rx 875 mg] Docusate Sodium [Colace] 100 mg PO BID #60 capsule 08/06/20 Unknown Rx Ibuprofen [Motrin] 800 mg PO Q8HR PRN #30 tablet 08/06/20 Unknown Rx Ondansetron [Zofran ODT TAB] 4 mg PO Q6HR PRN #20 tab.rapdis 08/06/20 Unknown Rx Butalbit/Acetamin/Caff/Codeine 1 cap PO Q8HR PRN #14 cap 08/24/20 Unknown Rx [Fioricet/Codeine [id number]] Hyoscyamine Subl [Levsin Sl 0.125 0.125 mg SL Q6HR PRN #20 tab 08/24/20 Unknown Rx TAB] Ondansetron [Zofran ODT TAB] 8 mg PO Q12HR #14 tab.rapdis 08/24/20 Unknown Rx Hyoscyamine Subl [Levsin Sl 0.125 0.125 mg SL Q4HR PRN #20 tablet 06/29/21 Unknown Rx TAB] ED Physical Exam - General Limitations: No Limitations General appearance: alert, in no apparent distress - Head Head exam: Present: atraumatic, normocephalic - Eye Eye exam: Present: normal appearance, PERRL, EOMI Pupils: Present: normal accommodation - ENT ENT exam: Present: normal exam, mucous membranes moist - Neck Neck exam: Present: normal inspection - Respiratory Respiratory exam: Present: normal lung sounds bilaterally. Absent: respiratory distress, wheezes, rales, rhonchi, accessory muscle use, decreased breath sounds - Cardiovascular Cardiovascular Exam: Present: regular rate, normal rhythm. Absent: bradycardia, tachycardia, systolic murmur, diastolic murmur, rubs, gallop - GI/Abdominal GI/Abdominal exam: Present: soft, tenderness (Patency left upper quadrant region. No rebound is noted. No Rovsing, no clubbing,), normal bowel sounds. Absent: rebound, rigid, organomegaly, mass, bruit, pulsatile mass - Extremities Exam Extremities exam: Present: normal inspection - Back Exam Back exam: Present: normal inspection. Absent: CVA tenderness (R), CVA tenderness (L) - Neurological Exam Neurological exam: Present: alert, oriented X3, CN II-XII intact. Absent: normal gait, abnormal gait - Psychiatric Psychiatric exam: Present: normal affect, normal mood. Absent: agitated, anxious, flat affect, manic, suicidal ideation - Skin Skin exam: Present: warm, dry, intact, normal color. Absent: rash, diaphoretic, erythema, urticaria ED Course Vital Signs 06/29/21 15:08 Pulse Rate 68 Respiratory 16 Rate Blood Pressure 119/53 O2 Sat by Pulse 97 Oximetry ED Medical Decision Making - Lab Data Result diagrams: 06/29/21 20:13 06/29/21 20:13 Critical care attestation.: If time is entered above; I have spent that time in minutes in the direct care of this critically ill patient, excluding procedure time. ED Disposition Clinical Impression: Abdominal pain Disposition: HOME / SELF CARE / HOMELESS Is pt being admited?: No Does the pt Need Aspirin: No Condition: Stable Instructions: Abdominal Pain, Adult, Abdominal Pain, Adult, [id number], Abdom inal Pain (ED) Additional Instructions: You have been evaluated emergency department today for abdominal pain. Your evaluation did not show evidence of any medical conditions requiring emergent intervention at this time. Your lipase was it was elevated but not to a signif icant degree significant pancreatitis does not appear to be present at this time please drink plenty of fluids. Please schedule an appointment with your primary care physician. Return to emergency department if you experience worsening uncontrolled pain, fevers of 100.4 or greater, recurrent vomiting, inability to tolerate food or fluids by mouth, bloody stools or vomit, black tarry stools, or any other concerning symptoms. Prescriptions: Hyoscyamine Subl [Levsin Sl 0.125 TAB] 0.125 mg SL Q4HR PRN #20 tablet PRN Reason: Spasms Referrals: [facility] [Provider Group] - 3-[address] [facility] [Provider Group] - 3-5 Days PRIMARY CARE, [Primary Care Provider] - 3-5 Days
== END 2021-06-29 22:22 | disposition home or self-care (01) ==
LOC: ED 14:45
DX: R10.12 Left upper quadrant pain (principal); Z79.899 Other long term (current) drug therapy
CPT/HCPCS: 36415; 80048; 80076; 81001; 83690; 85025; 99283